=== PATIENT | female | born 1970 | race Caucasian/White ===

== ENCOUNTER 2022-04-06 13:23 | Emergency (ER) | payer BC ==
[2022-04-06] MEDS ORDERED: Lidocaine 1% PF 2 ML SDV INFILT ONE (14:12)
[2022-04-06] MEDS ORDERED: Diphtheria,Pertussis(Acell),Tetanus Vaccine 0.5 ML SDV IM ONE (14:13)
== END 2022-04-06 14:37 | disposition home or self-care (01) ==
LOC: LB.ED 13:23
DX: S60.453A Superficial foreign body of left middle finger, initial encounter (principal); Z23 Encounter for immunization; Z88.2 Allergy status to sulfonamides; Z88.8 Allergy status to other drugs, medicaments and biological substances; Z90.710 Acquired absence of both cervix and uterus; W45.8XXA Other foreign body or object entering through skin, initial encounter
CPT/HCPCS: 90471; 99283-25